=== PATIENT | male | born 1960 | race Caucasian/White ===

== ENCOUNTER 2018-01-04 08:20 | Inpatient (IN) | payer MEDICAID ==
[~2018-01-04] VITALS: Ht 160 cm; Wt 52.5 kg
[2018-01-04] VITALS (9 sets, daily range): BP systolic 112–159; BP diastolic 59–76; PULSE 72–91; RESP 17–20; TEMP 97.7–99.1; O2SAT 92–99
[~2018-01-04 08:20] MED LIST: ADVA500A INH; ALBUAER3 INH; CARB6.5S5 EACH EAR; CILO100T PO; DOCU100C15 PO; FLUT50SP EACH NARE; GABA300C5 PO; LEVO750T3 PO; LISI-519 PO; LOVA40TA PO; METH500T3 PO; NAPR500T2 PO; NEBULIZER/ADULT1 KIT; ONETTES4; PRED20 PO; RANI150T PO; SENN8.6T81 PO
[2018-01-04] MEDS ORDERED: RESP: ALBUTEROL 2.5 MG/IPRATROPIUM 0.5 MG NEB (SCH) INH ONE (09:00)
[2018-01-04] MEDS ORDERED: SODIUM CHLORIDE 0.9% FLUSH 10 ML FLUSH IVF PRN (09:00)
[2018-01-04] MEDS ORDERED: methylPREDNISolone SOD SUCC 125 MG/2 ML VIAL IV PUSH ONE (09:00)
[2018-01-04] MEDS: RESP: ALBUTEROL 2.5 MG/3 ML NEB (SCH) INH (09:09)
[2018-01-04 09:17] LABS: AUTOMATED NEUTROPHIL # 2.7 TH/MM3 (1.8-7.7); BASOPHIL % 1.2 % (0.0-2.0); EOSINOPHIL % 0.7 % (0.0-4.0); HEMATOCRIT 40.9 % (39.0-51.0); HEMOGLOBIN 13.7 GM/DL (13.0-17.0); LYMPH % 18.2 % (9.0-44.0); LYMPHOCYTE # 0.7 TH/MM3 (1.0-4.8); MEAN CELL VOLUME 102.3 FL (80.0-100.0); MEAN CORPUSCULAR HEMOGLOBIN 34.2 PG (27.0-34.0); MEAN CORPUSCULAR HGB CONC 33.4 % (32.0-36.0); MEAN PLATELET VOLUME 7.9 FL (7.0-11.0); MONO % 13.7 % (0.0-8.0); MONOCYTE # 0.6 TH/MM3 (0-0.9); NEUT % 66.2 % (16.0-70.0); PLATELET COUNT 161 TH/MM3 (150-450); RED CELL DISTRIBUTION WIDTH 16.4 % (11.6-17.2)
[2018-01-04 09:34] LABS: ALBUMIN 3.2 GM/DL (3.4-5.0); AST (GOT) 54 U/L (15-37); BLOOD UREA NITROGEN 22 MG/DL (7-18); CALCIUM 8.7 MG/DL (8.5-10.1); CHLORIDE 102 MEQ/L (98-107); CREATININE 1.06 MG/DL (0.60-1.30); GLOMERULAR FILTRATION RATE 72 ML/MIN (>89); GLUCOSE,RANDOM 150 MG/DL (74-106); SODIUM (NA) 142 MEQ/L (136-145)
[2018-01-04 09:35] LABS: ALT (GPT) 65 U/L (12-78)
[2018-01-04 09:38] LABS: ALKALINE PHOSPHATASE 77 U/L (45-117); TOTAL BILIRUBIN ADULT 0.6 MG/DL (0.2-1.0); TOTAL PROTEIN 7.4 GM/DL (6.4-8.2); TROPONIN I LESS THAN 0.02 NG/ML (0.02-0.05)
--- NOTE | 2018-01-04 10:04 | RADRPT ---
EXAM DATE/TIME: 01/04/2018 09:18 [place] COMPARISON: CHEST SINGLE AP, February 12, 2015, 10:05. INDICATIONS : Shortness of breath. MEDICAL HISTORY : Chronic obstructive pulmonary disease. SURGICAL HISTORY : None. ENCOUNTER: Initial ACUITY: 1 day PAIN SCORE: 0/10 LOCATION: Bilateral chest FINDINGS: Moderate hyperinflation with prominent pulmonary arteries centrally. Negative for infiltrate or fail ure. No suspicious lung lesions. CONCLUSION: Moderate hyperinflation otherwise negative. Rory Moser MD FACR on January 04, 2018 at 10:02 Board Certified Radiologist. This report was verified electronically.
--- NOTE | 2018-01-04 10:32 | PD ---
HPI Chief Complaint: Respiratory Distress Time Seen by Provider: 08:29 Travel History International Travel<30 days: No Contact w/Intl Traveler<30days: No Traveled to known affect area: No History of Present Illness HPI This is a 57-year-old male with a history of hypertension, hyperlipidemia, COPD , who presents today with bites of shortness of breath and cough. Patient states that his symptoms started 4 days ago. He states it has become increasingly worse over the last 4 days. Patient states he has been using his MDI however it has not helped. He denies any fevers, chills. He does report that he has had productive cough with yellow phlegm. There is no chest pain, chest pressure. Patient also has a history of chronic back pain which she states is worse than secondary to the coughing. PFSH Past Medical History Asthma: Yes Anxiety: No Depression: No Cancer: No Cardiovascular Problems: No COPD: Yes Diabetes: Yes Patient Takes Glucophage: No Glaucoma: No Genitourinary: No Hepatitis: No Hiatal Hernia: No Hypertension: Yes Immune Disorder: No Musculoskeletal: Yes Neurologic: Yes Psychiatric: No Reproductive: No Respiratory: Yes (ASTHMA) Immunizations Current: Yes Migraines: Yes Thyroid Disease: No Ulcer: Yes ?: Not Past Surgical History Abdominal Surgery: Yes (GASTRIC ULCER ) Social History Alcohol Use: No Tobacco Use: Yes (OCC) Substance Use: No Allergies-Medications (Allergen,Severity, Reaction): Coded Allergies: penicillin G (Unverified Allergy, Unknown, 09/01/17) Reported Meds & Prescriptions Reported Meds & Active Scripts Active Cilostazol 100 Mg Tab 100 Mg PO BID Proair Hfa 8.5 GM Inh (Albuterol Sulfate) 90 Mcg/Act Aer 1 Puff INH Q4H PRN 108 mcg/actuation Advair Diskus Inh (Fluticasone-Salmeterol Inh) 500-50 Mcg/Blist Aer 1 Puff INH BID Rinse mouth after use. Reported Lisinopril 5 Mg Tab 5 Mg PO DAILY Lovastatin 40 Mg Tab 40 Mg PO HS Gabapentin 300 Mg Cap 300 PO BID Review of Systems Except as stated in HPI: all other systems reviewed are Neg General / Constitutional: No: Fever, Chills HENT: No: Headaches, Lightheadedness, Neck Stiffness Cardiovascular: No: Chest Pain or Discomfort, Palpitations, Irregular Rhythm Respiratory: Positive: Cough, Shortness of Breath, Wheezing Gastrointestinal: No: Nausea (Productive yellow phlegm.), Vomiting, Abdominal Pain Genitourinary: No: Dysuria, Decreased Urinary Output Musculoskeletal: Positive: Pain (Low back pain. Patient has a), No: Myalgias, Weakness Neurologic: No: Weakness, Dizziness, Headache Physical Exam Narrative GENERAL: Well-developed well-nourished male in moderate respiratory discomfort. SKIN: Focused skin assessment warm/dry. HEAD: Atraumatic. Normocephalic. EYES: No scleral icterus. No injection or drainage. ENT: No nasal bleeding or discharge. Mucous membranes pink and moist. NECK: Trachea midline. Supple. CARDIOVASCULAR: Regular rate and rhythm. No murmur appreciated. RESPIRATORY: No accessory muscle use. Clear to auscultation. Breath sounds equal bilaterally. GASTROINTESTINAL: Abdomen soft, non-tender, nondistended. Hepatic and splenic margins not palpable. MUSCULOSKELETAL: No obvious deformities. No clubbing. No cyanosis. No edema. NEUROLOGICAL: Awake and alert. No obvious cranial nerve deficits. Motor grossly within normal limits. Normal speech. PSYCHIATRIC: Appropriate mood and affect; insight and judgment normal. Data Data Last Documented VS Vital Signs Date Time Temp Pulse Resp B/P (MAP) Pulse Ox O2 Delivery O2 Flow Rate FiO2 01/04/18 10:19 77 17 134/68 (90) 99 Nasal Cannula 2.00 01/04/18 08:25 97.9 Orders Orders Electrocardiogram (01/04/18 ) Complete Blood Count With Diff (01/04/18 08:59) Comprehensive Metabolic Panel (01/04/18 08:59) Ckmb (Isoenzyme) Profile (01/04/18 08:59) Troponin I (01/04/18 08:59) Arterial Blood Gas (Abg) (01/04/18 08:59) Iv Access Insert/Monitor (01/04/18 08:59) Ecg Monitoring (01/04/18 08:59) Oximetry (01/04/18 08:59) Oxygen Administration (01/04/18 08:59) Chest, Single Ap (01/04/18 08:59) Sodium Chloride 0.9% Flush (Ns Flush) (01/04/18 09:00) Methylprednisolone So Succ Inj (Solumedr (01/04/18 09:00) Albuterol-Ipratropium Neb (Duoneb Neb) (01/04/18 09:00) Albuterol Neb (Albuterol Neb) (01/04/18 09:00) Admit To Inpatient (01/04/18 ) Vital Signs (Adult) Q4H (01/04/18 10:50) Diet Heart Healthy (01/04/18 Lunch) Sodium Chloride 0.9% Flush (Ns Flush) (01/04/18 21:00) Sodium Chloride 0.9% Flush (Ns Flush) (01/04/18 11:00) Albuterol-Ipratropium Neb (Duoneb Neb) (01/04/18 12:00) Albuterol Neb (Albuterol Neb) (01/04/18 11:00) Methylprednisolone So Succ Inj (Solumedr (01/04/18 11:00) Sputum Culture And Gram Stain (01/04/18 10:50) Resp Oxygen Tobias C Titrat 1-4 L (01/04/18 ) Scd Bilateral/Knee High NITHYA.BID (01/04/18 10:50) Inpatient Certification (01/04/18 ) Levofloxacin 500 Mg Premix Inj (Levaquin (01/04/18 12:00) Cyclobenzaprine (Flexeril) (01/04/18 11:00) Cilostazol (Pletal) (01/04/18 21:00) Lisinopril (Prinivil) (01/05/18 09:00) Pravastatin (Pravachol) (01/04/18 21:00) Gabapentin (Neurontin) (01/04/18 21:00) Admit Order (Ed Use Only) (01/04/18 11:36) Labs Laboratory Tests Test 01/04/18 09:02 01/04/18 09:10 White Blood Count 4.0 TH/MM3 Red Blood Count 4.00 MIL/MM3 Hemoglobin 13.7 GM/DL Hematocrit 40.9 % Mean Corpuscular Volume 102.3 FL Mean Corpuscular Hemoglobin 34.2 PG Mean Corpuscular Hemoglobin Concent 33.4 % Red Cell Distribution Width 16.4 % Platelet Count 161 TH/MM3 Mean Platelet Volume 7.9 FL Neutrophils (%) (Auto) 66.2 % Lymphocytes (%) (Auto) 18.2 % Monocytes (%) (Auto) 13.7 % Eosinophils (%) (Auto) 0.7 % Basophils (%) (Auto) 1.2 % Neutrophils # (Auto) 2.7 TH/MM3 Lymphocytes # (Auto) 0.7 TH/MM3 Monocytes # (Auto) 0.6 TH/MM3 Eosinophils # (Auto) 0.0 TH/MM3 Basophils # (Auto) 0.0 TH/MM3 CBC Comment DIFF FINAL Differential Comment Blood Urea Nitrogen 22 MG/DL Creatinine 1.06 MG/DL Random Glucose 150 MG/DL Total Protein 7.4 GM/DL Albumin 3.2 GM/DL Calcium Level 8.7 MG/DL Alkaline Phosphatase 77 U/L Aspartate Amino Transf (AST/SGOT) 54 U/L Alanine Aminotransferase (ALT/SGPT) 65 U/L Total Bilirubin 0.6 MG/DL Sodium Level 142 MEQ/L Potassium Level 4.0 MEQ/L Chloride Level 102 MEQ/L Carbon Dioxide Level 36.0 MEQ/L Anion Gap 4 MEQ/L Estimat Glomerular Filtration Rate 72 ML/MIN Total Creatine Kinase 72 U/L Troponin I LESS THAN 0.02 NG/ML Blood Gas Puncture Site LT RADIAL Blood Gas Patient Temperature 98.6 Blood Gas HCO3 37 mmol/L Blood Gas Base Excess 10.0 mmol/L Blood Gas Oxygen Saturation 68 % Arterial Blood pH 7.27 Arterial Blood Partial Pressure CO2 83 mmHg Arterial Blood Partial Pressure O2 43 mmHG Arterial Blood Oxygen Content 13.0 Vol % Arterial Blood Carboxyhemoglobin 1.7 % Arterial Blood Methemoglobin 0.6 % Blood Gas Hemoglobin 13.5 G/DL Blood Gas Inspired Oxygen 21 % MDM Medical Decision Making Medical Screen Exam Complete: Yes Emergency Medical Condition: Yes Differential Diagnosis COPD versus pneumonia versus bronchitis Narrative Course 57-year-old male with history of tobaccoism, COPD, presents today with complaints of shortness of breath. Patient states he has been using his MDI however has been not successful. The patient was noted to be hypoxic on blood gas. He has been given nebulizer treatments 3. He received Solu-Medrol via EMS. He will be admitted to the hospital for continue nebulizer treatments and steroids. Case was discussed with Dr. Kothari who is agreeable. Diagnosis Primary Impression: Acute exacerbation of chronic obstructive pulmonary disease (COPD) Additional Impressions: Tobacco abuse Hyperlipidemia Hepatitis C Admitting Information Admitting Physician Requests: Admit Scripts Oxygen (O2) (Oxygen (O2)) Device LITER TOBIAS.CANULA CONTINUOUS for Prevent Hypoxemia, #2 Oxygen Concentrator Portable Gaseous 2 L/min via Nasal Canula Continuous For 99 months Prov: Joel Gonzalez MD 01/06/18 Federico Calvillo MD Jan 04, 2018 10:32
--- NOTE | 2018-01-04 10:54 | HHI.HP ---
[facility] No Primary Care Physician Admission Diagnosis Acute Respiratory failure with hypoxia COPD versus asthma exacerbation Diagnoses: Chief Complaint: Shortness of breathing and hypoxia Travel History International Travel<30 Days: No Contact w/Intl Traveler <30 Da: No Traveled to Known Affected Are: No History of Present Illness This is a 57-year-old male with past medical history of asthma and hypertension now diet controlled who presented which was of breathing. Patient stated that he felt short of breath a few weeks ago. He stated that it worsened but he did not do anything about it. Also complains of a cough. Denies any congestion. Patient stated that he went to see his care provider today for checkup and he was found to be hypoxic. I spoke to patient's ER nurse who stated that his oxygen saturation was down in the 60s so EMS was called and patient was brought to the emergency department. Patient is hypoverbal and does not like to talk so it was difficult getting information from him. He denies any sick contacts. Deny any fevers or chills. Patient smoked tobacco about 1 pack per day since the age of 10. He stated that he is trying to stop smoking and last smoked a few months ago. Patient also complaining about muscle cramping of his lower extremity. He stated that this is common for him and that he has to walk. I asked nurse that he can walk and she stated that at the moment he can't because he's in the ER and he is on oxygen. All other review system reviewed and negative. Past Family Social History Past Medical History Asthma History of tobacco dependence Hypertension Past Surgical History Patient had abdominal surgery secondary to gastric ulcer unsure what type of surgery. Reported Medications Cilostazol 100 Mg Tab 100 Mg PO BID Proair Hfa 8.5 GM Inh (Albuterol Sulfate) 90 Mcg/Act Aer 1 Puff INH Q4H PRN 108 mcg/actuation Advair Diskus Inh (Fluticasone-Salmeterol Inh) 500-50 Mcg/Blist Aer 1 Puff INH BID Rinse mouth after use. Lisinopril 5 Mg Tab 5 Mg PO DAILY Lovastatin 40 Mg Tab 40 Mg PO HS Gabapentin 300 Mg Cap 300 PO BID Allergies: Coded Allergies: penicillin G (Unverified Allergy, Unknown, 09/01/17) Active Ordered Medications Current Medications Sodium Chloride (NS Flush) 2 ml UNSCH PRN IVF FLUSH AFTER USING IV ACCESS; Start 01/04/18 at 09:00 Methylprednisolone Sodium Succinate (SoluMEDROL INJ) 125 mg ONCE ONCE IV PUSH ; Start 01/04/18 at 09:00; Stop 01/04/18 at 09:01; Status DC Albuterol/ Ipratropium (Duoneb Neb) 1 ampule ONCE ONCE INH Last administered on 01/04/18at 09:09; Start 01/04/18 at 09:00; Stop 01/04/18 at 09:01; Status DC Albuterol Sulfate (Albuterol Neb) 2.5 mg Q15M INH Last administered on at 09:09; Start 01/04/18 at 09:00; Stop 01/04/18 at 09:16; Status DC Sodium Chloride (NS Flush) 2 ml BID IV FLUSH ; Start 01/04/18 at 21:00; Status UNV Sodium Chloride (NS Flush) 2 ml UNSCH PRN IV FLUSH FLUSH AFTER USING IV ACCESS ; Start 01/04/18 at 11:00; Status UNV Albuterol/ Ipratropium (Duoneb Neb) 1 ampule Q4HR NEB INH ; Start 01/04/18 at 12 :00; Status UNV Albuterol Sulfate (Albuterol Neb) 2.5 mg Q2HR NEB PRN INH SHORTNESS OF BREATH; Start 01/04/18 at 11:00; Status UNV Methylprednisolone Sodium Succinate (SoluMEDROL INJ) 60 mg Q6H IV PUSH ; Start 01/04/18 at 11:00; Status UNV Levofloxacin/ Dextrose 100 ml @ 100 mls/hr Q24H IV ; Start 01/04/18 at 11:00; Status UNV Cyclobenzaprine HCl (Flexeril) 5 mg Q8HR PO ; Start 01/04/18 at 11:00; Status UNV Family History Denies any past family history. Social History Denies any alcohol or illicit drug use. Physical Exam Vital Signs Vital Signs Date Time Temp Pulse Resp B/P (MAP) Pulse Ox O2 Delivery O2 Flow Rate FiO2 01/04/18 10:19 77 17 134/68 (90) 99 Nasal Cannula 2.00 01/04/18 09:09 96 Nasal Cannula 2.00 01/04/18 08:29 17 97 Nasal Cannula 2.00 01/04/18 08:25 97.9 83 17 159/76 (103) 92 Physical Exam GENERAL: This is a well-nourished, well-developed patient, in no apparent distress. SKIN: No rashes, ecchymoses or lesions. Cool and dry. HEAD: Atraumatic. Normocephalic. No temporal or scalp tenderness. EYES: Pupils equal round and reactive. Extraocular motions intact. No scleral icterus. No injection or drainage. ENT: Nose without bleeding, purulent drainage or septal hematoma. Throat without erythema, tonsillar hypertrophy or exudate. Uvula midline. Airway patent. NECK: Trachea midline. No JVD or lymphadenopathy. Supple, nontender, no meningeal signs. CARDIOVASCULAR: Regular rate and rhythm without murmurs, gallops, or rubs. RESPIRATORY: Diffuse expiratory wheezing but patient has decreased breath movements bilaterally. No rhonchi or crackles. GASTROINTESTINAL: Abdomen soft, non-tender, nondistended. No hepato-splenomegaly , or palpable masses. No guarding. MUSCULOSKELETAL: Extremities without clubbing, cyanosis, or edema. No joint tenderness, effusion, or edema noted. No calf tenderness. Negative Homans sign bilaterally. NEUROLOGICAL: Awake and alert. Cranial nerves II through XII intact. Motor and sensory grossly within normal limits. Five out of 5 muscle strength in all muscle groups. Normal speech. Laboratory Laboratory Tests Test 01/04/18 09:02 01/04/18 09:10 White Blood Count 4.0 Red Blood Count 4.00 Hemoglobin 13.7 Hematocrit 40.9 Mean Corpuscular Volume 102.3 Mean Corpuscular Hemoglobin 34.2 Mean Corpuscular Hemoglobin Concent 33.4 Red Cell Distribution Width 16.4 Platelet Count 161 Mean Platelet Volume 7.9 Neutrophils (%) (Auto) 66.2 Lymphocytes (%) (Auto) 18.2 Monocytes (%) (Auto) 13.7 Eosinophils (%) (Auto) 0.7 Basophils (%) (Auto) 1.2 Neutrophils # (Auto) 2.7 Lymphocytes # (Auto) 0.7 Monocytes # (Auto) 0.6 Eosinophils # (Auto) 0.0 Basophils # (Auto) 0.0 CBC Comment DIFF FINAL Differential Comment Blood Urea Nitrogen 22 Creatinine 1.06 Random Glucose 150 Total Protein 7.4 Albumin 3.2 Calcium Level 8.7 Alkaline Phosphatase 77 Aspartate Amino Transf (AST/SGOT) 54 Alanine Aminotransferase (ALT/SGPT) 65 Total Bilirubin 0.6 Sodium Level 142 Potassium Level 4.0 Chloride Level 102 Carbon Dioxide Level 36.0 Anion Gap 4 Estimat Glomerular Filtration Rate 72 Total Creatine Kinase 72 Troponin I LESS THAN 0.02 Blood Gas Puncture Site LT RADIAL Blood Gas Patient Temperature 98.6 Blood Gas HCO3 37 Blood Gas Base Excess 10.0 Blood Gas Oxygen Saturation 68 Arterial Blood pH 7.27 Arterial Blood Partial Pressure CO2 83 Arterial Blood Partial Pressure O2 43 Arterial Blood Oxygen Content 13.0 Arterial Blood Carboxyhemoglobin 1.7 Arterial Blood Methemoglobin 0.6 Blood Gas Hemoglobin 13.5 Blood Gas Inspired Oxygen 21 Result Diagram: 01/04/1890101/04/18901 Imaging Last Impressions Chest X-Ray 01/04/1859 Signed Impressions: Service Date/Time: Thursday, January 04, 2018 09:18 - CONCLUSION: Moderate hyperinflation otherwise negative. Rory Moser MD FACR Caprini VTE Risk Assessment Caprini VTE Risk Assessment: Mod/High Risk (score >= 2) Caprini Risk Assessment Model Point Value = 1 Point Value = 2 Point Value = 3 Point Value = 5 Age 41-60 Minor surgery BMI > 25 kg/m2 Swollen legs Varicose veins or History of unexplained or recurrent spontaneous Oral contraceptives or hormone replacement Sepsis (< 1 month) Serious lung disease, including pneumonia (< 1 month) Abnormal pulmonary function Acute myocardial infarction Congestive heart failure (< 1 month) History of inflammatory bowel disease Medical patient at bed rest Age 61-74 Arthroscopic surgery Major open surgery (> 45 min) Laparoscopic surgery (> 45 min) Malignancy Confined to bed (> 72 hours) Immobilizing plaster cast Central venous access Age >= 75 History of VTE Family history of VTE Factor V Leiden Prothrombin [id number] Lupus anticoagulant Anticardiolipin antibodies Elevated serum homocysteine Heparin-induced thrombocytopenia Other congenital or acquired thrombophilia Stroke (< 1 month) Elective arthroplasty Hip, pelvis, or leg fracture Acute spinal cord injury (< 1 month) Prophylaxis Regimen Total Risk Factor Score Risk Level Prophylaxis Regimen 0-1 Low Early ambulation 2 Moderate Order ONE of the following: *Sequential Compression Device (SCD) *Heparin 5000 units SQ BID 3-4 Higher Order ONE of the following medications: *Heparin 5000 units SQ TID *Enoxaparin/Lovenox 40 mg SQ daily (WT < 150 kg, CrCl > 30 mL/min) *Enoxaparin/Lovenox 30 mg SQ daily (WT < 150 kg, CrCl > 10-29 mL/min) *Enoxaparin/Lovenox 30 mg SQ BID (WT < 150 kg, CrCl > 30 mL/min) AND/OR *Sequential Compression Device (SCD) 5 or more Highest Order ONE of the following medications: *Heparin 5000 units SQ TID (Preferred with Epidurals) *Enoxaparin/Lovenox 40 mg SQ daily (WT < 150 kg, CrCl > 30 mL/min) *Enoxaparin/Lovenox 30 mg SQ daily (WT < 150 kg, CrCl > 10-29 mL/min) *Enoxaparin/Lovenox 30 mg SQ BID (WT < 150 kg, CrCl > 30 mL/min) AND *Sequential Compression Device (SCD) Assessment and Plan Assessment and Plan This is a 57-year-old male history of tobacco dependence, asthma, and hypertension who presented with shortness of breathing and hypoxia Acute respiratory failure with hypoxia -Most likely secondary to COPD versus asthma exacerbation. -Patient was found hypoxic in the 60s. He is not on any home oxygen. Chest x- ray shows hyperinflation but no infiltrate. Labs were obtained and reviewed. On clinical exam patient does have poor aeration. -Will treat with scheduled DuoNeb nebs every 4 hours, albuterol every 2 hours as needed, Solu-Medrol, and Levaquin. Give oxygen as needed. Respiratory acidosis -ABG was done which showed pH of 7.27, bicarbonate 83 and oxygenation 43. -As above. COPD versus asthma exacerbation -Patient does not have any diagnosis of COPD but suspicion for COPD exacerbation since chest x-ray shows hyperinflated lungs and patient has a long- standing history of tobacco dependence. -see treatment as above. Lower extremity muscle spasms -Most likely secondary to peripheral vascular disease. Will resume home medication. Will also add a muscle relaxant to see if this helps. Hypertension/hyperlipidemia/peripheral vascular disease -Continue with home medication. DVT prophylaxis -Patient has a history of gastric ulcer that required abdominal surgery. Will be cautious with chemoprophylaxis. SCDs. Discussed Condition With patient and his nurse Physician Certification 2 Midnight Certification Type: Admission for Inpatient Services Order for Inpatient Services The services are ordered in accordance with Medicare regulations or non- Medicare payer requirements, as applicable. In the case of services not specified as inpatient-only, they are appropriately provided as inpatient services in accordance with the 2-midnight benchmark. Estimated LOS (days): 3 3 days is the estimated time the patient will need to remain in the hospital, assuming treatment plan goals are met and no additional complications. Post-Hospital Plan: [place] Kendal Kothari MD Jan 04, 2018 10:54
[2018-01-04] MEDS ORDERED: SODIUM CHLORIDE 0.9% FLUSH 10 ML FLUSH IV FLUSH PRN (11:00)
[2018-01-04] MEDS ORDERED: RESP: ALBUTEROL 2.5 MG/3 ML NEB (PRN) INH (11:00)
[2018-01-04] MEDS: CYCLOBENZAPRINE HCL 10 MG TAB PO SCH ×2 (11:21→18:04)
[2018-01-04] MEDS: methylPREDNISolone SOD SUCC 125 MG/2 ML VIAL IV PUSH SCH ×3 (11:22→22:39)
[2018-01-04] MEDS: LEVOFLOXACIN 500 MG PREMIX INJ 100 ML IV SCH (11:32)
[2018-01-04] MEDS: RESP: ALBUTEROL 2.5 MG/IPRATROPIUM 0.5 MG NEB (SCH) INH ×4 (11:45→23:58)
[2018-01-04] MEDS: GABAPENTIN 100 MG CAP PO SCH (20:09)
[2018-01-04] MEDS: CILOSTAZOL 100 MG TAB PO SCH (20:10)
[2018-01-04] MEDS: PRAVASTATIN SOD 40 MG TAB PO SCH (20:10)
[2018-01-04] MEDS: SODIUM CHLORIDE 0.9% FLUSH 10 ML FLUSH IV FLUSH SCH (20:11)
--- NOTE | 2018-01-04 21:59 | EKG ---
Date Performed: 01/04/2018 Time Performed: 08:38:34 PTAGE: 57 years EKG: Sinus rhythm POSSIBLE RIGHT ATRIAL ENLARGEMENT POSSIBLE LEFT ATRIAL ENLARGEMENT SEPTAL MYOCARDIAL INFARCTION ABNO RMAL ECG PREVIOUS TRACING : 02/12/2015 15.57 DOCTOR: Francesca Granger Interpretating Date/Time 01/04/2018 21:56:18
[2018-01-05] VITALS (15 sets, daily range): BP systolic 76–132; BP diastolic 42–69; PULSE 73–126; RESP 12–20; TEMP 97.2–98.8; O2SAT 86–95
[2018-01-05] MEDS: RESP: ALBUTEROL 2.5 MG/IPRATROPIUM 0.5 MG NEB (SCH) INH ×5 (03:28→19:26)
[2018-01-05] MEDS: methylPREDNISolone SOD SUCC 125 MG/2 ML VIAL IV PUSH SCH ×4 (04:21→23:11)
[2018-01-05] MEDS: CYCLOBENZAPRINE HCL 10 MG TAB PO SCH ×3 (04:21→18:24)
[2018-01-05] MEDS: GABAPENTIN 100 MG CAP PO SCH (08:55)
[2018-01-05] MEDS: CILOSTAZOL 100 MG TAB PO SCH ×2 (08:55→20:16)
[2018-01-05] MEDS: SODIUM CHLORIDE 0.9% FLUSH 10 ML FLUSH IV FLUSH SCH ×2 (08:55→20:18)
[2018-01-05] MEDS ORDERED: NON-FORMULARY DRUG (Fluticasone-Salmeterol Inh (Advair Diskus Inh) 1 PUFF) INH SCH (09:00)
[2018-01-05] MEDS: BUDESONIDE-FORMOTEROL 160/4.5 MCG INHALER INH SCH ×2 (09:00→20:15)
[2018-01-05] MEDS ORDERED: LISINOPRIL 5 MG TAB PO SCH (09:00)
[2018-01-05] MEDS ORDERED: PNEUMOCOCCAL POLYVALENT INJ 25 MCG/0.5 ML SYR IM ONE (10:00)
[2018-01-05] MEDS ORDERED: INFLUENZA VIRUS VACCINE (QUADRIVALENT) 0.5 ML SYR IM ONE ×2 (10:00)
[2018-01-05] MEDS: LEVOFLOXACIN 500 MG PREMIX INJ 100 ML IV SCH (12:00)
[2018-01-05] MEDS ORDERED: GABAPENTIN 300 MG CAP PO SCH (14:30)
--- NOTE | 2018-01-05 15:42 | HHI.PR ---
Subjective Remarks Follow-up hypoxia. Oxygen down to 1 L. Still with dyspnea on exertion. Discussed with RN Objective Vitals Vital Signs Date Time Temp Pulse Resp B/P (MAP) Pulse Ox O2 Delivery O2 Flow Rate FiO2 01/05/18 08:00 97.8 101 20 113/57 (75) 86 01/05/18 08:00 105 01/05/18 08:00 Nasal Cannula 2.00 01/05/18 07:27 94 Nasal Cannula 2.00 01/05/18 05:22 97.3 73 18 127/69 (88) 92 01/05/18 04:00 73 01/05/18 04:00 Nasal Cannula 2.00 01/05/18 00:05 98.8 92 18 132/62 (85) 93 01/05/18 00:00 Nasal Cannula 2.00 01/05/18 00:00 86 01/04/18 21:25 99.1 91 18 130/60 (83) 92 01/04/18 20:00 81 01/04/18 20:00 Nasal Cannula 2.00 01/04/18 19:58 94 Nasal Cannula 2.00 01/04/18 16:00 97.8 72 20 138/66 (90) 92 I/O 01/04/18 01/04/18 01/04/18 01/05/18 01/05/18 01/05/18 07:00 15:00 23:00 07:00 15:00 23:00 Intake Total 290 ml 840 ml Output Total 500 ml Balance 290 ml 340 ml Intake Oral 240 ml 840 ml IV Total 50 ml Output Urine Total 500 ml # Bowel Movements 0 Result Diagram: 01/04/1802 01/04/18 0902 Imaging Last Impressions Chest X-Ray 01/04/18 0859 Signed Impressions: Service Date/Time: Thursday, January 04, 2018 09:18 - CONCLUSION: Moderate hyperinflation otherwise negative. Rory Moser MD FACR Objective Remarks GENERAL: This is a well-nourished, well-developed patient, in no apparent distress on nasal cannula. SKIN: No rashes, ecchymoses or lesions. Cool and dry. CARDIOVASCULAR: Regular rate and rhythm without murmurs, gallops, or rubs. RESPIRATORY: Slight expiratory wheezing with decreased breath movements bilaterally. No rhonchi or crackles. GASTROINTESTINAL: Abdomen soft, non-tender, nondistended. No hepato-splenomegaly , or palpable masses. No guarding. MUSCULOSKELETAL: Extremities without clubbing, cyanosis, or edema. No joint tenderness, effusion, or edema noted. No calf tenderness. Negative Homans sign bilaterally. NEUROLOGICAL: Awake and alert. Cranial nerves II through XII intact. Motor and sensory grossly within normal limits. Five out of 5 muscle strength in all muscle groups. Normal speech. Procedures none A/P Problem List: (1) COPD with exacerbation ICD Code: J44.1 - Obstructive chronic bronchitis with exacerbation Status: Acute Assessment and Plan This is a 57-year-old male history of tobacco dependence, asthma, and hypertension who presented with shortness of breathing and hypoxia Acute respiratory failure with hypoxia -Most likely secondary to COPD and/or asthma exacerbation. -Patient was found hypoxic in the 60s. He is not on any home oxygen. Chest x- ray shows hyperinflation but no infiltrate. Labs were obtained and reviewed. On clinical exam patient does have poor aeration. -Will treat with scheduled DuoNeb nebs every 4 hours, albuterol every 2 hours as needed, Solu-Medrol, and Levaquin. Give oxygen as needed. Respiratory acidosis -ABG was done which showed pH of 7.27, bicarbonate 83 and oxygenation 43. -As above. COPD versus asthma exacerbation -Patient does not have any diagnosis of COPD but suspicion for COPD exacerbation since chest x-ray shows hyperinflated lungs and patient has a long- standing history of tobacco dependence. Consult pulmonary -see treatment as above. Lower extremity muscle spasms -Most likely secondary to peripheral vascular disease. Continue Pletal Hypertension/hyperlipidemia/peripheral vascular disease -Continue with home medication. DVT prophylaxis -Patient has a history of gastric ulcer that required abdominal surgery. Will be cautious with chemoprophylaxis. SCDs. Joel Gonzalez MD Jan 05, 2018 15:42
[2018-01-05] MEDS ORDERED: SODIUM CHLOR 0.9% 250 ML INJ 250 ML IV ONE (16:30)
[2018-01-05] MEDS ORDERED: SODIUM CHLOR 0.9% 1000 ML INJ 1,000 ML IV SCH (16:45)
[2018-01-05] MEDS: PRAVASTATIN SOD 40 MG TAB PO SCH (20:16)
[2018-01-05] MEDS: GABAPENTIN 300 MG CAP PO SCH (20:16)
[2018-01-06] VITALS (12 sets, daily range): BP systolic 93–121; BP diastolic 51–71; PULSE 70–124; RESP 13–18; TEMP 97–98.1; O2SAT 87–96
[2018-01-06] MEDS: CYCLOBENZAPRINE HCL 10 MG TAB PO SCH ×3 (03:03→19:28)
[2018-01-06] MEDS: RESP: ALBUTEROL 2.5 MG/IPRATROPIUM 0.5 MG NEB (SCH) INH ×7 (03:17→23:59)
[2018-01-06] MEDS: methylPREDNISolone SOD SUCC 125 MG/2 ML VIAL IV PUSH SCH (05:17)
[2018-01-06 06:54] LABS: BASOPHIL % 0.1 % (0.0-2.0); HEMATOCRIT 38.7 % (39.0-51.0); HEMOGLOBIN 12.7 GM/DL (13.0-17.0); LYMPH % 1.3 % (9.0-44.0); LYMPHOCYTE # 0.1 TH/MM3 (1.0-4.8); MEAN CELL VOLUME 101.6 FL (80.0-100.0); MEAN CORPUSCULAR HEMOGLOBIN 33.3 PG (27.0-34.0); MEAN CORPUSCULAR HGB CONC 32.7 % (32.0-36.0); MEAN PLATELET VOLUME 8.1 FL (7.0-11.0); MONO % 2.7 % (0.0-8.0); MONOCYTE # 0.3 TH/MM3 (0-0.9); NEUT % 95.9 % (16.0-70.0); PLATELET COUNT 163 TH/MM3 (150-450); RED BLOOD COUNT 3.81 MIL/MM3 (4.50-5.90); RED CELL DISTRIBUTION WIDTH 15.9 % (11.6-17.2); WHITE BLOOD COUNT 10.4 TH/MM3 (4.0-11.0)
[2018-01-06 07:28] LABS: CALCIUM 8.9 MG/DL (8.5-10.1); CREATININE 1.83 MG/DL (0.60-1.30); MAGNESIUM 2.2 MG/DL (1.5-2.5)
[2018-01-06] MEDS: CILOSTAZOL 100 MG TAB PO SCH ×2 (09:15→20:54)
[2018-01-06] MEDS: GABAPENTIN 300 MG CAP PO SCH ×2 (09:15→20:54)
[2018-01-06] MEDS: SODIUM CHLORIDE 0.9% FLUSH 10 ML FLUSH IV FLUSH SCH ×2 (09:16→20:54)
[2018-01-06] MEDS: BUDESONIDE-FORMOTEROL 160/4.5 MCG INHALER INH SCH ×2 (09:17→20:54)
--- NOTE | 2018-01-06 10:59 | HHI.PR ---
Subjective Remarks Follow-up hypoxemia. Improving shortness of breath. Patient received fluid hydration overnight with improved hemodynamics. Discussed with nursing Objective Vitals Vital Signs Date Time Temp Pulse Resp B/P (MAP) Pulse Ox O2 Delivery O2 Flow Rate FiO2 01/06/18 09:04 90 Nasal Cannula 3.00 01/06/18 08:00 97.0 84 15 121/71 (88) 93 01/06/18 04:00 Nasal Cannula 2.00 01/06/18 04:00 85 01/06/18 04:00 97.8 70 18 118/63 (81) 95 01/06/18 00:00 Nasal Cannula 2.00 01/06/18 00:00 97.9 93 18 106/59 (75) 95 01/06/18 00:00 96 01/05/18 20:33 97.2 103 17 98/55 (69) 91 01/05/18 20:00 Nasal Cannula 2.00 01/05/18 20:00 105 01/05/18 18:52 98.0 100 12 106/46 (66) 90 01/05/18 17:32 96/42 (60) 01/05/18 16:45 97.4 126 12 94/51 (65) 95 01/05/18 16:20 98.1 108 20 76/44 (55) 91 01/05/18 15:54 91 Nasal Cannula 1.50 01/05/18 12:00 97.2 110 20 94/50 (65) 90 I/O 01/05/18 01/05/18 01/05/18 01/06/18 01/06/18 01/06/18 07:00 15:00 23:00 07:00 15:00 23:00 Intake Total 840 ml 600 ml 240 ml Output Total 500 ml 300 ml Balance 340 ml 600 ml -60 ml Intake Oral 840 ml 600 ml 240 ml Output Urine Total 500 ml 300 ml # Voids 3 # Bowel Movements 0 0 2 Result Diagram: 01/06/18 0535 01/06/18 0535 Objective Remarks GENERAL: This is a well-nourished, well-developed patient, in no apparent distress on nasal cannula. SKIN: No rashes, ecchymoses or lesions. Cool and dry. CARDIOVASCULAR: Regular rate and rhythm without murmurs, gallops, or rubs. RESPIRATORY: Slight expiratory wheezing with decreased breath movements bilaterally. No rhonchi or crackles. GASTROINTESTINAL: Abdomen soft, non-tender, nondistended. No hepato-splenomegaly , or palpable masses. No guarding. MUSCULOSKELETAL: Extremities without clubbing, cyanosis, or edema. No joint tenderness, effusion, or edema noted. No calf tenderness. Negative Homans sign bilaterally. NEUROLOGICAL: Awake and alert. Cranial nerves II through XII intact. Motor and sensory grossly within normal limits. Five out of 5 muscle strength in all muscle groups. Normal speech. Procedures none A/P Problem List: (1) COPD with exacerbation ICD Code: J44.1 - Obstructive chronic bronchitis with exacerbation Status: Acute Assessment and Plan This is a 57-year-old male history of tobacco dependence, asthma, and hypertension who presented with shortness of breathing and hypoxia Acute respiratory failure with hypoxia -Most likely secondary to COPD and/or asthma exacerbation. -Patient was found hypoxic in the 60s. He is not on any home oxygen. Chest x- ray shows hyperinflation but no infiltrate. Labs were obtained and reviewed. On clinical exam patient does have poor aeration. -Stable continue scheduled DuoNeb nebs every 4 hours, albuterol every 2 hours as needed, steroids, and Levaquin. Give oxygen as needed. Respiratory acidosis -ABG was done which showed pH of 7.27, bicarbonate 83 and oxygenation 43. -As above. COPD versus asthma exacerbation -Patient does not have any diagnosis of COPD but suspicion for COPD exacerbation since chest x-ray shows hyperinflated lungs and patient has a long- standing history of tobacco dependence. Consulted pulmonary -see treatment as above. Lower extremity muscle spasms -Most likely secondary to peripheral vascular disease. Continue Pletal Hypertension/hyperlipidemia/peripheral vascular disease -stable Acute kidney injury. Lisinopril has been discontinued. Continue IV hydration. Avoid nephrotoxins and repeat BMP in the morning. Check urinalysis DVT prophylaxis -Patient has a history of gastric ulcer that required abdominal surgery. Will be cautious with chemoprophylaxis. SCDs. Joel Gonzalez MD Jan 06, 2018 10:59
[2018-01-06] MEDS ORDERED: SODIUM CHLOR 0.45% 1000 ML INJ 1,000 ML IV ONE (12:00)
[2018-01-06] MEDS ORDERED: OXYGENDME NAS.CANULA (12:41)
[2018-01-06] MEDS ORDERED: LEVOFLOXACIN 750 MG TAB PO SCH (13:00)
[2018-01-06] MEDS: predniSONE 20 MG TAB PO SCH (13:19)
[2018-01-06] MEDS: PRAVASTATIN SOD 40 MG TAB PO SCH (20:54)
--- NOTE | 2018-01-06 23:38 | MB ---
cc: PETROS MORRELL M.D. DATE OF CONSULTATION: 01/06/2018 REASON FOR CONSULTATION: Exacerbation of COPD. HISTORY OF PRESENT ILLNESS The patient is a 57-year-old male with known history of COPD and/or bronchial asthma, who was admitted with increasing shortness of breath. Oxygen saturation in the ER was in the 60s. The patient was placed on oxygen therapy, bronchodilator therapy. He is feeling much better at present. He has an occasional cough, small amount of whitish sputum. No fever, no chills, no hemoptysis. No history of TB or previous industrial exposure. PAST MEDICAL HISTORY: COPD, tobacco abuse, continues to smoke, hypertension. MEDICATIONS At home: 1. Advair twice daily. 2. Lisinopril. 3. Losartan. 4. Albuterol p.r.n. 5. Gabapentin. ALLERGIES PENICILLIN. FAMILY HISTORY: Noncontributory. SOCIAL HISTORY: The patient smoked a pack of cigarettes a day for over 30 years. REVIEW OF SYSTEMS 12-point review of systems as per HPI and past history otherwise negative. PHYSICAL EXAMINATION: On exam he the patient is alert, appears in no acute distress. VITAL SIGNS: Temperature 97.5, respiratory rate 18, blood pressure 120/70, oxygen saturation 93% on two liters oxygen nasal cannula. HEENT: Exam unremarkable. Eyes without icterus. Neck: Without adenopathy or thyroid enlargement. Central trachea. Chest: Few scattered rhonchi bilaterally. Cardiac: PMI distant. S1-S2 audible. No murmur, no rub. Abdomen: Lax, bowel sounds audible. Extremities: No clubbing, cyanosis or edema. LABORATORY DATA White count 10,000, hemoglobin 12, hematocrit 38, sodium 137, potassium 4.5, BUN 58, creatinine 1.8. Platelets 163,000. IMPRESSION: 1. COPD exacerbation improved. 2. Hypertension, controlled. 3. Respiratory failure due to COPD. Will follow ABG. PLAN: The patient to continue oxygen therapy as needed. Bronchodilator therapy has been initiated and appropriately so. The patient's arterial blood gas will be followed. His last ABG was with a pH of 727, pCO2 83 and pO2 of 43. However, seems quite comfortable at present. Will obtain a follow up blood gas. His chest x-ray done 01/04/2018 was without acute infiltrate and mild hyperinflation. I do thank you for asking me to partake in Mr. Seymour's care. Petros Morrell MD WWW/TOBIAS /4:46 PM /11:25 PM
[2018-01-07] VITALS (7 sets, daily range): BP systolic 115–146; BP diastolic 58–72; PULSE 82–112; RESP 19–22; TEMP 97.2–98; O2SAT 93–96
[2018-01-07] MEDS: CYCLOBENZAPRINE HCL 10 MG TAB PO SCH ×2 (03:48→10:53)
[2018-01-07] MEDS: RESP: ALBUTEROL 2.5 MG/IPRATROPIUM 0.5 MG NEB (SCH) INH ×3 (04:48→12:22)
[2018-01-07] MEDS: GABAPENTIN 300 MG CAP PO SCH (08:26)
[2018-01-07] MEDS: predniSONE 20 MG TAB PO SCH (08:26)
[2018-01-07] MEDS: CILOSTAZOL 100 MG TAB PO SCH (08:26)
[2018-01-07] MEDS: SODIUM CHLORIDE 0.9% FLUSH 10 ML FLUSH IV FLUSH SCH (08:26)
[2018-01-07] MEDS: BUDESONIDE-FORMOTEROL 160/4.5 MCG INHALER INH SCH (08:26)
[2018-01-07 09:01] LABS: BICARBONATE 34.6 MEQ/L (21.0-32.0); CALCIUM 9.1 MG/DL (8.5-10.1); CREATININE 1.11 MG/DL (0.60-1.30); MAGNESIUM 2.3 MG/DL (1.5-2.5)
[2018-01-07] MEDS ORDERED: LEVA250T14 PO (12:21)
[2018-01-07] MEDS ORDERED: PRED20 PO (12:21)
--- NOTE | 2018-01-07 12:21 | HHI.DCPOC ---
Discharge Care Plan Diagnosis: (1) Chronic airway obstruction Your Health Problems Are: Difficulty with ADL Exercise Tolerance Goals to Promote Your Health * To prevent worsening of your condition and complications * To maintain your health at the optimal level Directions to Meet Your Goals Take your medications as prescribed Follow your dietary instruction Follow activity as directed Keep your appointments as scheduled Take your immunizations and boosters as scheduled If your symptoms worsen call your PCP, if no PCP go to Urgent Care Center or Emergency Room Smoking is Dangerous to Your Health. Avoid second hand smoke Call the 24-hour hour crisis hotline for domestic abuse at Joel Gonzalez MD Jan 07, 2018 12:21
--- NOTE | 2018-01-07 12:25 | HHI.DS ---
Discharge Summary Admission Date Jan 04, 2018 at 11:38 Discharge Date: Jan 07, 2018 Admitting Diagnosis Acute Respiratory failure with hypoxia COPD versus asthma exacerbation (1) COPD with exacerbation ICD Code: J44.1 - Obstructive chronic bronchitis with exacerbation Diagnosis: Principal Status: Acute Procedures none Brief History - From Admission This is a 57-year-old male with past medical history of asthma and hypertension now diet controlled who presented which was of breathing. Patient stated that he felt short of breath a few weeks ago. He stated that it worsened but he did not do anything about it. Also complains of a cough. Denies any congestion. Patient stated that he went to see his care provider today for checkup and he was found to be hypoxic. I spoke to patient's ER nurse who stated that his oxygen saturation was down in the 60s so EMS was called and patient was brought to the emergency department. Patient is hypoverbal and does not like to talk so it was difficult getting information from him. He denies any sick contacts. Deny any fevers or chills. Patient smoked tobacco about 1 pack per day since the age of 10. He stated that he is trying to stop smoking and last smoked a few months ago. Patient also complaining about muscle cramping of his lower extremity. He stated that this is common for him and that he has to walk. I asked nurse that he can walk and she stated that at the moment he can't because he's in the ER and he is on oxygen. All other review system reviewed and negative. CBC/BMP: 01/06/18 0535 01/07/18 0700 Significant Findings Laboratory Tests Test 01/06/18 05:35 01/06/18 17:42 01/07/18 07:00 Red Blood Count 3.81 MIL/MM3 (4.50-5.90) Hemoglobin 12.7 GM/DL (13.0-17.0) Hematocrit 38.7 % (39.0-51.0) Mean Corpuscular Volume 101.6 FL (80.0-100.0) Neutrophils (%) (Auto) 95.9 % (16.0-70.0) Lymphocytes (%) (Auto) 1.3 % (9.0-44.0) Neutrophils # (Auto) 10.0 TH/MM3 (1.8-7.7) Lymphocytes # (Auto) 0.1 TH/MM3 (1.0-4.8) Blood Urea Nitrogen 58 MG/DL (7-18) 43 MG/DL (7-18) Creatinine 1.83 MG/DL (0.60-1.30) Random Glucose 202 MG/DL (74-106) 167 MG/DL (74-106) Chloride Level 96 MEQ/L (98-107) 97 MEQ/L (98-107) Carbon Dioxide Level 34.0 MEQ/L (21.0-32.0) 34.6 MEQ/L (21.0-32.0) Estimat Glomerular Filtration Rate 38 ML/MIN (>89) 68 ML/MIN (>89) Blood Gas HCO3 33 mmol/L (22-26) Blood Gas Base Excess 7.9 mmol/L (-2-2) Arterial Blood pH 7.37 (7.380-7.420) Arterial Blood Partial Pressure CO2 59 mmHg (38-42) Blood Gas Hemoglobin 11.7 G/DL (12.0-16.0) Anion Gap 4 MEQ/L (5-15) Imaging Last Impressions Chest X-Ray 01/04/18 0830 Signed Impressions: Service Date/Time: Thursday, January 04, 2018 09:18 - CONCLUSION: Moderate hyperinflation otherwise negative. Rory Moser MD FACR PE at Discharge GENERAL: This is a well-nourished, well-developed patient, in no apparent distress on nasal cannula. SKIN: No rashes, ecchymoses or lesions. Cool and dry. CARDIOVASCULAR: Regular rate and rhythm without murmurs, gallops, or rubs. RESPIRATORY: Slight expiratory wheezing with decreased breath movements bilaterally. No rhonchi or crackles. GASTROINTESTINAL: Abdomen soft, non-tender, nondistended. No hepato-splenomegaly , or palpable masses. No guarding. MUSCULOSKELETAL: Extremities without clubbing, cyanosis, or edema. No joint tenderness, effusion, or edema noted. No calf tenderness. Negative Homans sign bilaterally. NEUROLOGICAL: Awake and alert. Cranial nerves II through XII intact. Motor and sensory grossly within normal limits. Five out of 5 muscle strength in all muscle groups. Normal speech. Hospital Course This is a 57-year-old male history of tobacco dependence, asthma, and hypertension who presented with shortness of breathing and hypoxia Acute respiratory failure with hypoxia 2/2 COPD exacerbation. Continue oxygen, nebulizations, steroids and Levaquin. Tobacco cessation Lower extremity discomfort Most likely secondary to peripheral vascular disease. Continue Pletal Hypertension/hyperlipidemia/peripheral vascular disease. Stable Acute kidney injury. Resolved. Lisinopril has been discontinued. Discontinue IV hydration. Avoid nephrotoxins. Check urinalysis. Elevated BUN likely secondary to steroids DVT prophylaxis. Patient has a history of gastric ulcer that required abdominal surgery. Will be cautious with chemoprophylaxis. SCDs. Pt Condition on Discharge: Stable Discharge Disposition: Discharge Home Discharge Time: > 30 minutes Discharge Instructions DIET: Follow Instructions for: Heart Healthy Diet Activities you can perform: Regular-No Restrictions Activities to Avoid: Driving Follow up Referrals: PCP Follow-up - 1 Week Pulmonology - 1 Week New Medications: Oxygen (O2) (Oxygen (O2)) Device LITER TOBIAS.CANULA CONTINUOUS for Prevent Hypoxemia, #2 Oxygen Concentrator Portable Gaseous 2 L/min via Nasal Canula Continuous For 99 months Levofloxacin (Levaquin) 250 Mg Tablet 250 MG PO Q24H for Infection, #4 TAB Prednisone (Prednisone) 20 Mg Tab 40 MG PO DAILY for Control Inflammation, #8 TAB Continued Medications: Albuterol 8.5 GM Inh (Proair Hfa 8.5 GM Inh) 90 Mcg/Act Aer 1 PUFF INH Q4H PRN for SHORTNESS OF BREATH, #1 INHALER 3 Refills 108 mcg/actuation Cilostazol (Cilostazol) 100 Mg Tab 100 MG PO BID for INTERMITTENT CLAUDICATION, #60 TAB 3 Refills Fluticasone-Salmeterol Inh (Advair Diskus Inh) 500-50 Mcg/Blist Aer 1 PUFF INH BID, #1 INHALER 6 Refills Rinse mouth after use. Gabapentin (Gabapentin) 300 Mg Cap 300 PO BID, #60 CAP 0 Refills Lovastatin (Lovastatin) 40 Mg Tab 40 MG PO HS for Cholesterol Management, #30 TAB 0 Refills Discontinued Medications: Lisinopril (Lisinopril) 5 Mg Tab 5 MG PO DAILY for Blood Pressure Management, #30 TAB 0 Refills Joel Gonzalez MD Jan 07, 2018 12:25
[2018-01-07] MEDS ORDERED: LEVOFLOXACIN 250 MG TAB PO SCH (14:00)
[2018-01-07] MEDS ORDERED: RESP: ALBUTEROL 2.5 MG/IPRATROPIUM 0.5 MG NEB (SCH) INH (16:00)
== END 2018-01-07 16:46 | disposition home or self-care (01) | DRG 189 ==
LOC: NEPE 08:20 → NEDA 11:38 → N04B 12:42
PROVIDERS: ADMIT Internal Medicine; ATTEND Internal Medicine
DX: J96.01 Acute respiratory failure with hypoxia (principal); N17.9 Acute kidney failure, unspecified; E87.2 Acidosis; J44.1 Chronic obstructive pulmonary disease with (acute) exacerbation; J45.901 Unspecified asthma with (acute) exacerbation; E11.51 Type 2 diabetes mellitus with diabetic peripheral angiopathy without gangrene; I10 Essential (primary) hypertension; E78.5 Hyperlipidemia, unspecified; M62.838 Other muscle spasm; F17.210 Nicotine dependence, cigarettes, uncomplicated; T38.0X5A Adverse effect of glucocorticoids and synthetic analogues, initial encounter; Z23 Encounter for immunization; Y92.239 Unspecified place in hospital as the place of occurrence of the external cause; Z87.11 Personal history of peptic ulcer disease; Z88.0 Allergy status to penicillin
CPT/HCPCS: 36600; 71045; 80048; 80053; 82550; 82805; 83735; 84484; 85025; 90686; 93005; 94640; 94664; 99285; J1956; J2930; J7030; J7512; J7613; Q2038